=== PATIENT | female | born 1930 | race Caucasian/White ===

== ENCOUNTER 2016-11-08 20:16 | Observation (INO) | payer MEDICARE, BC ==
[~2016-11-08] VITALS: Ht 165.1 cm; Wt 90.0 kg
[~2016-11-08 20:16] MED LIST: ASPI81 PO; ATEN1TAB73 PO; FOLI1TAB PO; FOSA35TA2 PO; PRIN10TA PO; PROT40TA PO; VITA100T15 PO; ZOCO40TA PO
[2016-11-08 20:30] VITALS: BP 151/82; PULSE 67; RESP 18; TEMP 98.4; O2SAT 99
--- NOTE | 2016-11-08 20:39 | PD ---
HPI Chief Complaint: Chest Pain Time Seen by Provider: 20:36 Travel History International Travel<30 days: No Contact w/Intl Traveler<30days: No Traveled to known affect area: No History of Present Illness HPI The patient is an 86-year-old female that probably has no history of heart disease who complains of a tightness in her bilateral anterior chest beginning at 7:30 PM tonight. It is constant and she has associated belching. She denies any nausea, diaphoresis but states she does have shortness of breath. The pain radiates to her left jaw. She does have a history of TIA in the past. Her only anticoagulant is aspirin. Her last stress test was 3-4 years ago. PFS Past Medical History High Cholesterol: Yes Congestive Heart Failure: No GERD: Yes Hypertension: Yes Menopausal: Yes Past Surgical History Other Surgery: Yes (CATARACTS) Social History Alcohol Use: No Tobacco Use: No Substance Use: No Allergies-Medications (Allergen,Severity, Reaction): Coded Allergies: No Known Allergies (Verified , 11/08/16) Reported Meds & Prescriptions Reported Meds & Active Scripts Active Review of Systems Except as stated in HPI: all other systems reviewed are Neg Physical Exam Narrative GENERAL: The patient is alert, oriented 3 in minimal apparent distress. Her vital signs show blood pressure 151/82 but are otherwise normal. SKIN: Focused skin assessment warm/dry. No skin rash is seen. HEAD: Atraumatic. Normocephalic. EYES: Pupils equal and round. No scleral icterus. No injection or drainage. ENT: No nasal bleeding or discharge. Mucous membranes pink and moist. NECK: Trachea midline. No JVD. CARDIOVASCULAR: Regular rate and rhythm. No murmur appreciated. RESPIRATORY: No accessory muscle use. Clear to auscultation. Breath sounds equal bilaterally. GASTROINTESTINAL: Abdomen soft, non-tender, nondistended. Hepatic and splenic margins not palpable. MUSCULOSKELETAL: No obvious deformities. No clubbing. No cyanosis. No edema. I can completely reproduce the patient's left shoulder pain by pressing on the area of the left shoulder where she perceives her pain. NEUROLOGICAL: Awake and alert. No obvious cranial nerve deficits. Motor grossly within normal limits. Normal speech. PSYCHIATRIC: Appropriate mood and affect; insight and judgment normal. Data Data Last Documented VS Vital Signs Date Time Temp Pulse Resp B/P Pulse Ox O2 Delivery O2 Flow Rate FiO2 11/08/16 21:15 63 18 103/57 98 Room Air 11/08/16 20:30 98.4 Orders Electrocardiogram (11/08/16 20:40) Ckmb (Isoenzyme) Profile (11/08/16 20:40) Complete Blood Count With Diff (11/08/16 20:40) Comprehensive Metabolic Panel (11/08/16 20:40) Magnesium (Mg) (11/08/16 20:40) Prothrombin Time / Inr (Pt) (11/08/16 20:40) Act Partial Throm Time (Ptt) (11/08/16 20:40) Troponin I (11/08/16 20:40) Ecg Monitoring (11/08/16 20:40) Bilateral Bp Monitoring (11/08/16 20:40) Iv Access Insert/Monitor (11/08/16 20:40) Oximetry (11/08/16 20:40) Oxygen Administration (11/08/16 20:40) Aspirin Chew (Aspirin Chew) (11/08/16 20:45) Sodium Chloride 0.9% Flush (Ns Flush) (11/08/16 20:45) Nitroglycerin Sl (Nitrostat Sl) (11/08/16 20:45) Chest, Pa & Lat (11/08/16 20:40) Labs Laboratory Tests Test 11/08/16 20:45 White Blood Count 8.4 TH/MM3 Red Blood Count 3.58 MIL/MM3 Hemoglobin 11.4 GM/DL Hematocrit 33.9 % Mean Corpuscular Volume 94.7 FL Mean Corpuscular Hemoglobin 31.8 PG Mean Corpuscular Hemoglobin 33.5 % Concent Red Cell Distribution Width 13.4 % Platelet Count 155 TH/MM3 Mean Platelet Volume 8.6 FL Neutrophils (%) (Auto) 53.6 % Lymphocytes (%) (Auto) 30.9 % Monocytes (%) (Auto) 11.4 % Eosinophils (%) (Auto) 3.7 % Basophils (%) (Auto) 0.4 % Neutrophils # (Auto) 4.5 TH/MM3 Lymphocytes # (Auto) 2.6 TH/MM3 Monocytes # (Auto) 1.0 TH/MM3 Eosinophils # (Auto) 0.3 TH/MM3 Basophils # (Auto) 0.0 TH/MM3 CBC Comment DIFF FINAL Differential Comment Prothrombin Time 10.2 SEC Prothromb Time International 0.9 RATIO Ratio Activated Partial 26.1 SEC Thromboplast Time Sodium Level 139 MEQ/L Potassium Level 4.1 MEQ/L Chloride Level 104 MEQ/L Carbon Dioxide Level 27.4 MEQ/L Anion Gap 8 MEQ/L Blood Urea Nitrogen 26 MG/DL Creatinine 1.20 MG/DL Estimat Glomerular Filtration 43 ML/MIN Rate Random Glucose 98 MG/DL Calcium Level 9.2 MG/DL Magnesium Level 2.3 MG/DL Total Bilirubin 0.3 MG/DL Aspartate Amino Transf 19 U/L (AST/SGOT) Alanine Aminotransferase 19 U/L (ALT/SGPT) Alkaline Phosphatase 46 U/L Total Creatine Kinase 96 U/L Troponin I LESS THAN 0.02 NG/ML Total Protein 7.7 GM/DL Albumin 3.7 GM/DL MDM Medical Decision Making Medical Screen Exam Complete: Yes Emergency Medical Condition: Yes Medical Record Reviewed: Yes Interpretation(s) The CBC shows a hemoglobin of 11.4 with hematocrit of 33.9 but is otherwise unremarkable. The complete metabolic profile shows a BUN of 26, creatinine 1.2 and GFR 43 but is otherwise normal. The troponin I and total CK are normal. The coagulation profile is normal. The EKG shows sinus rhythm with a rate of [address] elevation or depression. The chest x-ray shows moderate cardiomegaly but the lungs are clear. Differential Diagnosis Chest pain etiology undetermined, acute coronary syndrome, dehydration, electrolyte disorder, anemia, renal insufficiency, congestive heart failure Narrative Course The patient has chest pain of unknown etiology. Her last stress test is 3-4 years old and is out of date. Plan: The patient will have a stress test. She will be 23 hour observation here to the chest pain center. Diagnosis Primary Impression: Chest pain of unknown etiology Admitting Information Admitting Physician Requests: Observation Rock Canales MD Nov 08, 2016 20:39
[2016-11-08 20:44] VITALS: BP_SYST 151; BP_SYST 154; BP_DIAS 80; BP_DIAS 82
[2016-11-08] MEDS ORDERED: ASPIRIN 81 MG CHEW TAB PO ONE (20:45)
[2016-11-08] MEDS ORDERED: SODIUM CHLORIDE 0.9% FLUSH 10 ML FLUSH IVF PRN (20:45)
[2016-11-08] MEDS: NITROGLYCERIN 0.4 MG SL 25 TABS/BTL SL SCH ×3 (20:50→21:00)
[2016-11-08 20:58] LABS: AUTOMATED NEUTROPHIL # 4.5 TH/MM3 (1.8-7.7); BASOPHIL % 0.4 % (0.0-2.0); EOSINOPHIL # 0.3 TH/MM3 (0-0.4); EOSINOPHIL % 3.7 % (0.0-4.0); HEMATOCRIT 33.9 % (35.0-46.0); HEMO FLAGS DIFF FINAL; LYMPH % 30.9 % (9.0-44.0); LYMPHOCYTE # 2.6 TH/MM3 (1.0-4.8); MEAN CELL VOLUME 94.7 FL (80.0-100.0); MEAN CORPUSCULAR HEMOGLOBIN 31.8 PG (27.0-34.0); MEAN CORPUSCULAR HGB CONC 33.5 % (32.0-36.0); MONO % 11.4 % (0.0-8.0); NEUT % 53.6 % (16.0-70.0); PLATELET COUNT 155 TH/MM3 (150-450); RED BLOOD COUNT 3.58 MIL/MM3 (4.00-5.30); RED CELL DISTRIBUTION WIDTH 13.4 % (11.6-17.2); WHITE BLOOD COUNT 8.4 TH/MM3 (4.0-11.0)
[2016-11-08 21:02] VITALS: BP 157/73; PULSE 68; RESP 18; O2SAT 98
[2016-11-08 21:06] LABS: CHLORIDE 104 MEQ/L (98-107); POTASSIUM 4.1 MEQ/L (3.5-5.1); SODIUM (NA) 139 MEQ/L (136-145)
[2016-11-08 21:10] LABS: ANION GAP 8 MEQ/L (5-15); BICARBONATE 27.4 MEQ/L (21.0-32.0); BLOOD UREA NITROGEN 26 MG/DL (7-18); MAGNESIUM 2.3 MG/DL (1.5-2.5)
[2016-11-08 21:11] LABS: APTT (PATIENT) 26.1 SEC (24.3-30.1); INTERNATIONAL NORMALIZED RATIO 0.9 RATIO; PROTHROMBIN TIME - PATIENT 10.2 SEC (9.8-11.6)
[2016-11-08] MEDS ORDERED: SIMV40TA PO (21:11)
[2016-11-08] MEDS ORDERED: ASPI81CH CHEW (21:11)
[2016-11-08] MEDS ORDERED: PANT40TA3 PO (21:11)
[2016-11-08] MEDS ORDERED: ATEN25TA PO (21:11)
[2016-11-08] MEDS ORDERED: FERR324T4 PO (21:11)
[2016-11-08] MEDS ORDERED: ALLO100T PO (21:11)
[2016-11-08] MEDS ORDERED: LISI-519 PO (21:11)
[2016-11-08] MEDS ORDERED: FOLI20CA PO (21:11)
[2016-11-08] MEDS ORDERED: VITA500T4 PO (21:11)
[2016-11-08] MEDS ORDERED: VITA200013 PO (21:11)
[2016-11-08 21:13] LABS: ALT (GPT) 19 U/L (10-53); AST (GOT) 19 U/L (15-37); GLOMERULAR FILTRATION RATE 43 ML/MIN (>89)
[2016-11-08 21:15] VITALS: BP 103/57; PULSE 63; RESP 18; O2SAT 98
[2016-11-08 21:15] LABS: TOTAL BILIRUBIN ADULT 0.3 MG/DL (0.2-1.0)
[2016-11-08 21:16] LABS: ALKALINE PHOSPHATASE 46 U/L (45-117)
[2016-11-08 21:26] LABS: CREATINE KINASE 96 U/L (26-192)
--- NOTE | 2016-11-08 21:29 | RADHPO ---
EXAM DATE/TIME: 11/08/2016 21:01 [facility] COMPARISON: No previous studies available for comparison. INDICATIONS : Right posterior chest pain. MEDICAL HISTORY : None. SURGICAL HISTORY : None. ENCOUNTER: Initial ACUITY: 1 day PAIN SCORE: 5/10 LOCATION: Right chest FINDINGS: PA and lateral views of the chest demonstrate the lungs to be symmetrically aerated without evidence of mass, infiltrate or effusion. Moderate cardiomegaly. Osseous structures are intact. CONCLUSION: Moderate cardiomegaly. Clear lungs. Kareem Moreira Jr., MD on November 08, 2016 at 21:26 Board Certified Radiologist. This report was verified electronically.
[2016-11-08] MEDS ORDERED: ONDANSETRON HCL 4 MG/2 ML VIAL IV PRN (22:15)
[2016-11-08] MEDS ORDERED: SODIUM CHLORIDE 0.9% FLUSH 10 ML FLUSH IV FLUSH PRN (22:15)
[2016-11-08] MEDS ORDERED: ACETAMINOPHEN 500 MG CPLT PO PRN (22:15)
[2016-11-08] MEDS ORDERED: KETOROLAC TROMETHAMINE 60 MG/2 ML (IM) VIAL IVP ONE (22:30)
[2016-11-08 23:01] LABS: CREATINE KINASE 85 U/L (26-192)
[2016-11-08 23:10] VITALS: BP 155/67; PULSE 64; RESP 18; O2SAT 97
[2016-11-09] VITALS (7 sets, daily range): BP systolic 122–153; BP diastolic 63–81; PULSE 58–72; RESP 16–20; TEMP 96–97.6; O2SAT 97–100
[2016-11-09 01:22] LABS: CREATINE KINASE 107 U/L (26-192)
[2016-11-09 01:35] LABS: CKMB 1.1 NG/ML (0.5-3.6)
[2016-11-09] MEDS ORDERED: PILL SPLITTER OTHER PRN (08:45)
[2016-11-09] MEDS ORDERED: ALLOPURINOL 100 MG TAB PO SCH (09:00)
[2016-11-09] MEDS ORDERED: PANTOPRAZOLE SOD 40 MG DELAYED RELEASE TAB PO SCH (09:00)
[2016-11-09] MEDS ORDERED: CYANOCOBALAMIN 1,000 MCG TAB PO SCH (09:00)
[2016-11-09] MEDS ORDERED: FOLIC ACID 1 MG TAB PO SCH (09:00)
[2016-11-09] MEDS ORDERED: ASPIRIN 81 MG CHEW TAB CHEW SCH (09:00)
[2016-11-09] MEDS ORDERED: CHOLECALCIFEROL (VIT D3) 1000 UNIT TAB PO SCH (09:00)
[2016-11-09] MEDS ORDERED: ATENOLOL 25 MG TAB PO SCH (09:00)
[2016-11-09] MEDS ORDERED: DOCUSATE SODIUM 50 MG/SENNA 8.6 MG TAB PO PRN (09:00)
[2016-11-09] MEDS ORDERED: FERROUS SULFATE 325 MG (65 MG ELEMENTAL IRON) TAB PO SCH (09:00)
[2016-11-09] MEDS ORDERED: CALCIUM CARBONATE 500 MG CHEWABLE TAB CHEW PRN (09:00)
[2016-11-09] MEDS ORDERED: LISINOPRIL 5 MG TAB PO SCH (09:00)
[2016-11-09 09:11] LABS: CREATINE KINASE 100 U/L (26-192)
--- NOTE | 2016-11-09 10:09 | HHI.HP ---
[facility] Service [facility] Primary Care Physician Jeff Carrasco MD Admission Diagnosis chest pain of unknown etiology Diagnoses: Chief Complaint: Chest pain Travel History International Travel<30 Days: No Contact w/Intl Traveler <30 Da: No Traveled to Known Affected Are: No History of Present Illness This is an 86-year-old female with a history of TIA, hypertension, hyperlipidemia, GERD, chronic anemia and chronic kidney disease stage III. She was at a restaurant having salad when she developed severe scale of 8 out of 10 bilateral chest wall tightness radiating to the left jaw for 2 hours associated with feeling warm, nausea and shortness of breath. Denies palpitations, dizziness and diaphoresis. She had relief after receiving aspirin and Toradol in the emergency department. Overnight she did well and ruled out for PR. Denies fever, chills, cough, leg pain and leg swelling. Denies history of coronary artery disease with negative stress test in 2009. All other systems reviewed negative Review of Systems Except as stated in HPI: all other systems reviewed are Neg Past Family Social History Past Medical History As previously mentioned Past Surgical History Cataract surgery Reported Medications Lisinopril, allopurinol, atenolol, simvastatin, iron, aspirin, Protonix, vitamin B-12, folic acid and vitamin D Allergies: Coded Allergies: No Known Allergies (Verified , 11/08/16) Family History Heart disease Social History Does not smoke or drink Physical Exam Vital Signs Vital Signs Date Time Temp Pulse Resp B/P Pulse Ox O2 Delivery O2 Flow Rate FiO2 11/09/16 08:00 97.6 62 20 153/81 97 11/09/16 04:53 96.3 58 16 122/63 100 11/09/16 01:59 62 11/09/16 00:59 96.0 71 18 122/80 99 11/09/16 00:58 98 21 11/08/16 23:44 67 18 97 11/08/16 23:10 64 18 155/67 97 Room Air 11/08/16 21:15 63 18 103/57 98 Room Air 11/08/16 21:02 68 18 157/73 98 Room Air 11/08/16 20:44 151/82 154/80 11/08/16 20:39 67 18 99 Room Air 11/08/16 20:30 98.4 67 18 151/82 99 Physical Exam GENERAL: This is a well-nourished, well-developed patient, in no apparent distress. SKIN: No rashes, ecchymoses or lesions. Cool and dry. HEAD: Atraumatic. Normocephalic. No temporal or scalp tenderness. EYES: Pupils equal round and reactive. Extraocular motions intact. No scleral icterus. No injection or drainage. ENT: Nose without bleeding, purulent drainage or septal hematoma. Throat without erythema, tonsillar hypertrophy or exudate. Uvula midline. Airway patent. NECK: Trachea midline. No JVD or lymphadenopathy. Supple, nontender, no meningeal signs. CARDIOVASCULAR: Regular rate and rhythm without murmurs, gallops, or rubs. RESPIRATORY: Clear to auscultation. Breath sounds equal bilaterally. No wheezes , rales, or rhonchi. Tender left lateral chest wall which is chronic per patient GASTROINTESTINAL: Abdomen soft, non-tender, nondistended. No hepato-splenomegaly , or palpable masses. No guarding. MUSCULOSKELETAL: Extremities without clubbing, cyanosis, or edema. No joint tenderness, effusion, or edema noted. No calf tenderness. Negative Homans sign bilaterally. Tender left shoulder with full range of motion movements no swelling or redness NEUROLOGICAL: Awake and alert. Cranial nerves II through XII intact. Motor and sensory grossly within normal limits. Five out of 5 muscle strength in all muscle groups. Normal speech. Laboratory Laboratory Tests Test 11/08/16 11/08/16 11/09/16 11/09/16 20:45 22:20 00:50 08:10 White Blood Count 8.4 Red Blood Count 3.58 Hemoglobin 11.4 Hematocrit 33.9 Mean Corpuscular Volume 94.7 Mean Corpuscular Hemoglobin 31.8 Mean Corpuscular Hemoglobin 33.5 Concent Red Cell Distribution Width 13.4 Platelet Count 155 Mean Platelet Volume 8.6 Neutrophils (%) (Auto) 53.6 Lymphocytes (%) (Auto) 30.9 Monocytes (%) (Auto) 11.4 Eosinophils (%) (Auto) 3.7 Basophils (%) (Auto) 0.4 Neutrophils # (Auto) 4.5 Lymphocytes # (Auto) 2.6 Monocytes # (Auto) 1.0 Eosinophils # (Auto) 0.3 Basophils # (Auto) 0.0 CBC Comment DIFF FINAL Differential Comment Prothrombin Time 10.2 Prothromb Time International 0.9 Ratio Activated Partial 26.1 Thromboplast Time Sodium Level 139 Potassium Level 4.1 Chloride Level 104 Carbon Dioxide Level 27.4 Anion Gap 8 Blood Urea Nitrogen 26 Creatinine 1.20 Estimat Glomerular Filtration 43 Rate Random Glucose 98 Calcium Level 9.2 Magnesium Level 2.3 Total Bilirubin 0.3 Aspartate Amino Transf 19 (AST/SGOT) Alanine Aminotransferase 19 (ALT/SGPT) Alkaline Phosphatase 46 Total Creatine Kinase 96 85 107 100 Troponin I LESS THAN 0.02 LESS THAN 0.02 LESS THAN 0.02 LESS THAN 0.02 Total Protein 7.7 Albumin 3.7 Creatine Kinase MB 1.1 Result Diagram: 11/08/16204411/08/162044 Imaging EKG tracing interpreted by me with sinus bradycardia with first-degree AV block and poor R-wave progression and Q waves in the inferior leads no significant change from previous chest x-ray image interpreted by me with no acute cardiopulmonary disease Last Impressions Chest X-Ray 11/08/162039 Signed Impressions: Service Date/Time: Tuesday, November 08, 2016 21:01 - CONCLUSION: Moderate cardiomegaly. Clear lungs. Kareem Moreira Jr., MD Assessment and Plan Problem List: (1) Chest pain of unknown etiology ICD Code: R07.89 Status: Acute Assessment and Plan This is an 86-year-old female who was at a restaurant having salad when she developed severe scale of 8 out of 10 bilateral chest wall tightness radiating to the left jaw for 2 hours associated with feeling warm, nausea and shortness of breath. Denies palpitations, dizziness and diaphoresis. She had relief after receiving aspirin and Toradol in the emergency department. Overnight she did well and ruled out for PR. Denies fever, chills, cough, leg pain and leg swelling. Denies history of coronary artery disease with negative stress test in 2009. Chest pain. Patient already ruled out for PR. She does have multiple risk factors for CAD and agrees to proceed with Lexiscan. Continue aspirin, atenolol and simvastatin. If stress test negative, chest pain likely secondary to GERD versus musculoskeletal. Antireflux mechanisms discussed with patient continue PPI. Supportive treatment Chronic medical conditions of TIA, hypertension, hyperlipidemia, GERD, chronic anemia and chronic kidney disease stage III. Stable continue outpatient medications as appropriate DVT prophylaxis with SCD and early ambulation Discussed Condition With Discharge patient to home if stress test negative Condition on discharge: Improved Regular Diet as tolerated Ad Mona activity no driving Rx written: Tums and OTC Tylenol Follow-up with primary care physician in one week Everett Forrester MD Nov 09, 2016 10:08
[2016-11-09] MEDS ORDERED: TUMS500C CHEW (10:10)
--- NOTE | 2016-11-09 10:10 | HHI.DCPOC ---
Discharge Care Plan Diagnosis: (1) Chest pain of unknown etiology Your Health Problems Are: Difficulty with ADL Chest Pain Exercise Tolerance Goals to Promote Your Health * To prevent worsening of your condition and complications * To maintain your health at the optimal level Directions to Meet Your Goals Take your medications as prescribed Follow your dietary instruction Follow activity as directed Keep your appointments as scheduled Take your immunizations and boosters as scheduled If your symptoms worsen call your PCP, if no PCP go to Urgent Care Center or Emergency Room Smoking is Dangerous to Your Health. Avoid second hand smoke Call the 24-hour hour crisis hotline for domestic abuse at Everett Forrester MD Nov 09, 2016 10:10
[2016-11-09] MEDS ORDERED: REGADENOSON INJ 0.4 MG/5 ML SYR IV ONE (11:45)
--- NOTE | 2016-11-09 13:19 | RADHPO ---
EXAM DATE/TIME: 11/09/2016 11:23 [facility] COMPARISON: No previous studies available for comparison. INDICATIONS : Bilateral chest wall tightness radiating to the left jaw. Angina. DOSE: 27.3 mCi Tc99m Myoview at stress. 8.5 mCi Tc99m Myoview at rest. 0.4 mg Lexiscan STRESS SYMPTOMS: Dyspnea. EJECTION FRACTION: 61% MEDICAL HISTORY : Renal insufficiency, chrnoic. Hypertension. Gastroesophageal reflux disease. SURGICAL HISTORY : Catarcts. ENCOUNTER: Initial ACUITY: 1 day PAIN SCALE: 2/10 LOCATION: Bilateral chest TECHNIQUE: The patient underwent pharmacologic stress with infusion of prescribed dose. Continuous ECG tracing was monitored during stress. Gated SPECT imaging was performed after stress and conventional SPECT i maging was performed at rest. The examination was performed on a SPECT/CT scanner, both attenuation and non-corrected datasets were reviewed. FINDINGS: DISTRIBUTION: The maximum perfused segment at stress is in the lateral wall. PERFUSION STUDY: The pattern of perfusion at stress is within normal limits. GATED STUDY: There is intact wall motion and thickening without hypokinetic or dyskinetic segments. CONCLUSION: No reversible perfusion defects. No focal wall motion abnormalities. RISK CATEGORY: 1-Low Risk. Ulisses Whatley MD on November 09, 2016 at 13:15 Board Certified Radiologist. This report was verified electronically.
--- NOTE | 2016-11-09 14:48 | TR ---
Date Performed: 11/09/2016 Time Performed: 11:59:14 DOCTOR: Hay Mark DRUG LIST: CLINICAL HISTORY: REASON FOR TEST: REASON FOR ENDING: OBSERVATION: CONCLUSION: Lexiscan stress test was performed under standard four minute protocol. Radionuclid e was injected one minute prior to ending the test. No electrocardiographic abormalities were present to suggest ischemia. Nuclear imaging and interpretation are pending. COMMENTS:
--- NOTE | 2016-11-09 14:49 | EKG ---
Date Performed: 11/08/2016 Time Performed: 20:18:46 PTAGE: 86 years EKG: Sinus rhythm . Inferior infarct - age undetermined Low QRS voltages in precordial leads Compared to prior tracing no significant change Abnormal ECG PREVIOUS TRACING : 12/09/2009 21.02 DOCTOR: Hay Mark Interpretating Date/Time 11/09/2016 14:47:50
--- NOTE | 2016-11-09 14:50 | EKG ---
Date Performed: 11/08/2016 Time Performed: 22:09:48 PTAGE: 86 years EKG: Sinus rhythm with borderline 1st degree A-V block Possible inferior infarct - age undetermined Poor initial anter ior forces, which are probably normal variant Compared to prior tracing no significant change Abnorma l ECG PREVIOUS TRACING : 11/08/2016 20.18 DOCTOR: Hay Mark Interpretating Date/Time 11/09/2016 14:48:49
--- NOTE | 2016-11-09 14:51 | EKG ---
Date Performed: 11/09/2016 Time Performed: 00:42:42 PTAGE: 86 years EKG: Sinus rhythm with borderline 1st degree A-V block Low QRS voltages in precordial leads Inferior Q wave now seen i n lead III only of undetermined significance Compared to previous tracing, there's improvement in the R forces in the right precordial leads. Otherwise no significant change Borderline ECG PREVIOUS TRACING : 11/08/2016 20.18 DOCTOR: Hay Mark Interpretating Date/Time 11/09/2016 14:51:11
[2016-11-09] MEDS ORDERED: PRAVASTATIN SOD 80 MG TAB PO SCH (21:00)
--- NOTE | 2016-11-10 14:45 | EKG ---
Date Performed: 11/09/2016 Time Performed: 08:51:20 PTAGE: 86 years EKG: Sinus bradycardia with first degree AV block Poor initial anterior force V1 and V2 Low QRS voltage in precordial leads Since PREVIOUS TRACING 11/09/2016, there is some loss of R force in V2 which may be a variant of normal due to lead placement or body position. PREVIOUS TRACIN11/09/2016 00.42 DOCTOR: Hay Mark Interpretating Date/Time 11/10/2016 14:43:54
== END 2016-11-09 15:42 | disposition home or self-care (01) ==
LOC: PHED 20:16 → INTOOBSV 22:07 → PHEDA 22:07 → PH3A 23:40
PROVIDERS: ADMIT Internal Medicine; ATTEND Internal Medicine
DX: R07.89 Other chest pain (principal); R68.84 Jaw pain; I12.9 Hypertensive chronic kidney disease with stage 1 through stage 4 chronic kidney disease, or unspecified chronic kidney disease; N18.3 Chronic kidney disease, stage 3 (moderate); E78.5 Hyperlipidemia, unspecified; I44.0 Atrioventricular block, first degree; I51.7 Cardiomegaly; R11.0 Nausea; R06.02 Shortness of breath; D64.9 Anemia, unspecified; R94.31 Abnormal electrocardiogram [ECG] [EKG]; Z86.73 Personal history of transient ischemic attack (TIA), and cerebral infarction without residual deficits; Z79.82 Long term (current) use of aspirin
CPT/HCPCS: 71020; 78452; 80053; 82550; 82552; 83735; 84484; 85025; 85610; 85730; 93005; 93017; 96374; 96375; 99285; A9502; G0378; J1885; J2785